=== PATIENT | male | born 2000 | race African-American/Black ===

== ENCOUNTER 2022-10-30 00:57 | Emergency (ER) | payer OTHER ==
--- NOTE | 2022-10-30 02:25 | ED Physician Documentation ---
PD HPI OVERDOSE - Stated complaint Stated Complaint: OD - Chief complaint Chief Complaint: MHE - History obtained from History obtained from: Patient - Additional information Additional information: HPI from patient; family is at bedside. Patient smoked fentanyl tonight, subsequently felt something dyspneic which he cannot describe beyond saying "something was wrong with my breathing", and this prompted him to ask family member to administer intransal narcan. Patient says this is his narcan and had been provided to him from a medical practitioner. He presents asymptomatic. Denies HI, SI. Review of Systems Psychiatric: denies: Suicidal, Homicidal, Anxiety PD PAST MEDICAL HISTORY - Past Medical History Past Medical History: No Cardiovascular: None Respiratory: None Neuro: None Endocrine/Autoimmune: None GI: None : None HEENT: None Psych: None Musculoskeletal: None Derm: None - Past Surgical History Past Surgical History: Yes - Present Medications Home Medications: Ambulatory Orders Medication Instructions Recorded Confirmed No Known Home Medications 10/30/22 10/30/22 - Allergies Allergies/Adverse Reactions: Allergies Allergy/AdvReac Type Severity Reaction Status Date / Time No Known Drug Allergies Allergy Verified 10/30/22 01:14 - Social History Does the pt smoke?: No Smoking Status: Never smoker Substance Use and Type: Other - Immunizations Immunizations are current?: Yes PD ED PE NORMAL - Vitals Vital signs reviewed: Yes - General General: Alert and oriented X 3, No acute distress, Well developed/nourished - Cardiac Cardiac: RRR, No murmur - Respiratory Respiratory: No respiratory distress, Clear bilaterally - Neuro Neuro: Alert and oriented X 3 Eye Opening: Spontaneous Motor: Obeys Commands Verbal: Oriented GCS Score: 15 - Psych Psych: Normal mood, Normal affect Results - Vitals Vitals: Oxygen O2 Source Room air PD Medical Decision Making - ED course Complexity details: considered differential, d/w patient ED course: asymptomatic on my H+P as well as reevaluation prior to d/c. He is observed for two hours in ED and is AAOx3. He declines inpatient treatment but is interested in information on [facility] which I provided within d/c instructions. He is given narcan kit prior to d/c Departure - Departure Disposition: 01 Home, Self Care Clinical Impression: Opiate abuse, continuous Condition: Good Instructions: ED Narcotic Abuse, ED Overdose Opiate Comments: If you are desiring inpatient treatment for addiction, one option would be [facility]. This is a stabilization and recovery program in [place]. The contact phone number is . They will answer the phone at anytime of the day or night, perform an [id number] interview to determine if you are appropriate for their facility, and, if so, they will then provide a time when you should arrive to the facility for the intake process. Discharge Date/Time: 10/30/22 03:03
[2022-10-30] MEDS ORDERED: NALOXONE HCL NASAL SPRAY KIT NAS STA (02:39)
[2022-10-30 03:01] VITALS: BP 143/71
== END 2022-10-30 03:03 | disposition home or self-care (01) ==
LOC: EDBD 00:57 → ED 00:57
DX: F11.10 Opioid abuse, uncomplicated (principal)
CPT/HCPCS: 99282; 99283; G2215

== ENCOUNTER 2022-11-02 18:04 | Emergency (ER) | payer OTHER ==
--- NOTE | 2022-11-02 18:13 | ED Physician Documentation ---
PD HPI CHEST PAIN - Stated complaint Stated Complaint: RAPID HR - History obtained from History obtained from: Patient - Additional information Additional information: 22-year-old gentleman is a habitual fentanyl smoker. Smoked fentanyl just about half an hour or an hour ago and after which he felt a rapid heart rate and wonders if he might be having a panic attack. There is no chest pain associated with it. PD PAST MEDICAL HISTORY - Past Medical History Cardiovascular: None Respiratory: None Neuro: None Endocrine/Autoimmune: None GI: None : None HEENT: None Psych: None Musculoskeletal: None Derm: None - Past Surgical History Past Surgical History: Yes - Present Medications Home Medications: Ambulatory Orders Medication Instructions Recorded Confirmed No Known Home Medications 10/30/22 11/02/22 - Allergies Allergies/Adverse Reactions: Allergies Allergy/AdvReac Type Severity Reaction Status Date / Time Penicillins Allergy Anaphylaxis Verified 11/02/22 18:22 Sulfa (Sulfonamide Allergy Anaphylaxis Verified 11/02/22 18:22 Antibiotics) - Social History Does the pt smoke?: No Smoking Status: Never smoker - Immunizations Immunizations are current?: Yes PD ED PE NORMAL - Vitals Vital signs reviewed: Yes - General General: Alert and oriented X 3, Other (Appears anxious) - HEENT HEENT: PERRL - Cardiac Cardiac: Other (Mild resting tachycardia without murmur, regular) - Respiratory Respiratory: No respiratory distress, Clear bilaterally - Abdomen Abdomen: Non tender - Neuro Neuro: Alert and oriented X 3 Results - Vitals Vitals: Vital Signs - 24 hr 11/02/22 11/02/22 18:14 18:34 Temperature 36.9 C Heart Rate 97 85 Respiratory 18 30 H Rate Blood Pressure 154/87 H 128/75 O2 Saturation 97 98 Oxygen O2 Source Room air - EKG (time done) 1808 EKG releavant findings:: EKG personally interpreted by author of this note. Relevant findings are: Rate: Rate (enter#) (91) Rhythm: NSR [place]: LAD Intervals: Normal [place] QRS: Normal Ischemia: Normal ST segments Computer interpretation: Disagree with computer - Labs Labs: Laboratory Tests 11/02/22 11/02/22 18:16 18:16 WBC 6.3 RBC 5.24 Hgb 14.4 Hct 43.8 MCV 83.6 MCH 27.5 MCHC 32.9 RDW 12.1 Plt Count 263 MPV 9.7 Neut # (Auto) 3.7 Lymph # (Auto) 1.9 [place] # (Auto) 0.6 Eos # (Auto) 0.1 Baso # (Auto) 0.0 Absolute Nucleated RBC 0.00 Nucleated RBC % 0.0 Sodium 137 Potassium 3.4 L Chloride 99 L Carbon Dioxide 28 Anion Gap 10.0 BUN 16 Creatinine 1.1 Estimated GFR (MDRD) 103 Glucose 138 H Calcium 9.5 Magnesium 1.9 PD Medical Decision Making - ED course ED course: Note that he already has Narcan dispensed at last visit which has not been used so not re-dispensed. 22-year-old gentleman presents with panicky feelings and rapid heart rate after using fentanyl. No worrisome diagnostic findings on CBC or CMP or EKG. He had just used fentanyl so when he arrived, he had driven himself here and basically parked in the middle of the parking lot without parking in a parking space obstr ucting traffic. He was told that no way shape or form could he drive home and I advised that he have a sober adult come pick him up. He declined anxiety medicine here. Departure - Departure Disposition: 01 Home, Self Care Clinical Impression: Fentanyl use disorder, severe, Anxiety Condition: Stable Record reviewed to determine appropriate education?: Yes Instructions: ED Drug Abuse General Comments: We think you would benefit from admission for detoxification and/or rehabilitation from alcohol and/or drugs. The closest facility that does this is in [place]. It is: [facility] [address] [place] [address] Call them at [phone] to arrange an intake appointment. Call your doctor to arrange a follow-up appointment, make the next available appointment. In the interim, return anytime if worse or if new symptoms develop.
[2022-11-02 18:28] LABS: BASOPHILS % (AUTO) 0.2 %; EOSINOPHILS # (AUTO) 0.1 10^3/uL (0.0-0.7); HCT - HEMATOCRIT 43.8 % (42.0-52.0); HGB - HEMOGLOBIN 14.4 g/dL (14.0-18.0); LYMPHOCYTES # (AUTO) 1.9 10^3/uL (1.5-3.5); LYMPHOCYTES % (AUTO) 29.7 %; MEAN CORPUSCULAR HEMOGLOBIN 27.5 pg (27.0-31.0); MEAN CORPUSCULAR HGB CONC 32.9 g/dL (32.0-36.0); MEAN CORPUSCULAR VOLUME 83.6 fL (80.0-94.0); MEAN PLATELET VOLUME 9.7 fL (7.4-11.4); MONOCYTES # (AUTO) 0.6 10^3/uL (0.0-1.0); MONOCYTES % (AUTO) 10.1 %; NEUTROPHILS # (AUTO) 3.7 10^3/uL (1.5-6.6); NEUTROPHILS % (AUTO) 58.8 %; PLT - PLATELET COUNT 263 10^3/uL (130-450); RED BLOOD COUNT 5.24 10^6/uL (4.70-6.10); RED CELL DISTRIBUTION WIDTH 12.1 % (12.0-15.0); WHITE BLOOD COUNT 6.3 x10^3/uL (4.8-10.8)
[2022-11-02 18:32] LABS: CALCIUM 9.5 mg/dL (8.5-10.3); CREATININE 1.1 mg/dL (0.6-1.2); MAGNESIUM 1.9 mg/dL (1.7-2.8); POTASSIUM 3.4 mmol/L (3.5-5.0)
[2022-11-02 19:35] VITALS: BP 124/69
== END 2022-11-02 20:06 | disposition home or self-care (01) ==
LOC: ED 18:04
DX: F11.988 Opioid use, unspecified with other opioid-induced disorder (principal)
CPT/HCPCS: 36415; 80048; 83735; 85025; 93005; 99284

== ENCOUNTER 2022-11-21 13:42 | Emergency (ER) | payer OTHER ==
[2022-11-21 14:28] VITALS: BP 113/71
--- NOTE | 2022-11-21 14:45 | XRAY Report ---
PROCEDURE: Chest 1 View X-Ray INDICATIONS: chest pain TECHNIQUE: One view of the chest was acquired. COMPARISON: None. FINDINGS: Surgical changes and devices: None. Lungs and pleura: No pleural effusions or pneumothorax. Lungs are clear. Mediastinum: Mediastinal contours appear normal. Heart size is normal. Bones and chest wall: No suspicious bony lesions. Overlying soft tissues appear unremarkable. IMPRESSION: No acute cardiopulmonary process. Reviewed by: Geovany Santiago MD on 11/21/2022 2:44 PM PDT Approved by: Geovany Santiago MD on 11/21/2022 2:44 PM PDT Station ID: [id number]
--- NOTE | 2022-11-21 15:47 | ED Physician Documentation ---
History of Present Illness - Stated complaint Stated Complaint: SOA,CHEST PX - Chief complaint Chief Complaint: General - History obtained from History obtained from: Patient - Additonal information Additional information: 22-year-old gentleman with history of anxiety and recently stopped using fentanyl now on Suboxone. He has been having panic attacks almost daily where he has a sense of impending doom and chest pressure. He had been on Zoloft in the past with good effect, and is trying to see a psychiatrist but needs something in the interim. He does have hydroxyzine at home as well. PD PAST MEDICAL HISTORY - Past Medical History Past Medical History: Yes Cardiovascular: None Respiratory: None Neuro: None Endocrine/Autoimmune: None GI: None : None HEENT: None Psych: Anxiety Musculoskeletal: None Derm: None - Past Surgical History Past Surgical History: Yes - Present Medications Home Medications: Ambulatory Orders Medication Instructions Recorded Confirmed Buprenorphine HCl/Naloxone HCl 2 mg PO BID 11/21/22 11/21/22 [Suboxone 2 mg-0.5 mg Sl Film] Sertraline HCl 100 mg PO DAILY #60 tablet 11/21/22 cloNIDine [Catapres] 0.1 mg PO BID 11/21/22 11/21/22 hydrOXYzine HCL [Hydroxyzine HCl] 25 mg PO BID 11/21/22 11/21/22 hydrOXYzine PAMOATE [Vistaril] 25 mg PO Q6H PRN #20 cap 11/21/22 - Allergies Allergies/Adverse Reactions: Allergies Allergy/AdvReac Type Severity Reaction Status Date / Time Penicillins Allergy Anaphylaxis Verified 11/02/22 18:22 cephalexin AdvReac Unknown Verified 11/21/22 14:15 - Social History Does the pt smoke?: No Smoking Status: Never smoker Does the pt drink ETOH?: No Does the pt have substance abuse?: Yes - Immunizations Immunizations are current?: Yes - POLST Patient has POLST: No PD ED PE NORMAL - Vitals Vital signs reviewed: Yes - General General: Alert and oriented X 3, No acute distress - Cardiac Cardiac: RRR, No murmur - Respiratory Respiratory: No respiratory distress, Clear bilaterally - Abdomen Abdomen: Non tender - Derm Derm: Normal color, Warm and dry - Extremities Extremities: No edema, No calf tenderness / cord - Neuro Neuro: Alert and oriented X 3, Normal speech Results - Vitals Vitals: Vital Signs - 24 hr 11/21/22 13:56 Temperature 36.8 C Heart Rate 69 Respiratory 19 Rate Blood Pressure 113/71 O2 Saturation 99 Oxygen O2 Source Room air - EKG (time done) 1359 EKG releavant findings:: EKG personally interpreted by author of this note. Relevant findings are: Rate: Rate (enter#) Rhythm: NSR (61) [place]: LAD Intervals: Normal [place] QRS: Normal Ischemia: ST elevation c/w repol. No: ST elevation c/w ischemia, ST depression Compare to prior EKG: Unchanged from prior EKG Computer interpretation: Agree with computer - Rads (name of study) 1 chest xr Relevant Findings:: Final report received, EMP independent interpretation of test PD Medical Decision Making - ED course ED course: 22-year-old gentleman with anxiety related chest pain with negative work-up. He would like to restart Zoloft. Departure - Departure Disposition: 01 Home, Self Care Clinical Impression: Anxiety Condition: Good Record reviewed to determine appropriate education?: Yes Instructions: ED Panic Attack Prescriptions: Sertraline HCl 100 mg PO DAILY #60 tablet hydrOXYzine PAMOATE [Vistaril] 25 mg PO Q6H PRN #20 cap PRN Reason: Anxiety Comments: When you have a panic attack you can certainly take the hydroxyzine you already have a prescription for as it will take a little bit of time for the Zoloft to become effective. Follow-up with a psychiatrist like you are planning. Return for new or worsening symptoms.
== END 2022-11-21 15:57 | disposition home or self-care (01) ==
LOC: ED 13:42
DX: F41.9 Anxiety disorder, unspecified (principal); Z79.899 Other long term (current) drug therapy
CPT/HCPCS: 93005; 99284

== ENCOUNTER 2022-12-25 15:30 | Outpatient (CLI) | payer OTHER ==
[2022-12-25 20:52] LABS: BASOPHILS % (AUTO) 0.3 %; EOSINOPHILS # (AUTO) 0.2 10^3/uL (0.0-0.7); EOSINOPHILS % (AUTO) 3.6 %; HCT - HEMATOCRIT 45.7 % (42.0-52.0); HGB - HEMOGLOBIN 14.8 g/dL (14.0-18.0); LYMPHOCYTES # (AUTO) 2.4 10^3/uL (1.5-3.5); LYMPHOCYTES % (AUTO) 40.9 %; MEAN CORPUSCULAR HEMOGLOBIN 27.8 pg (27.0-31.0); MEAN CORPUSCULAR HGB CONC 32.4 g/dL (32.0-36.0); MEAN CORPUSCULAR VOLUME 85.9 fL (80.0-94.0); MEAN PLATELET VOLUME 10.2 fL (7.4-11.4); MONOCYTES # (AUTO) 0.5 10^3/uL (0.0-1.0); MONOCYTES % (AUTO) 9.3 %; NEUTROPHILS # (AUTO) 2.7 10^3/uL (1.5-6.6); NEUTROPHILS % (AUTO) 45.7 %; PLT - PLATELET COUNT 246 10^3/uL (130-450); RED BLOOD COUNT 5.32 10^6/uL (4.70-6.10); RED CELL DISTRIBUTION WIDTH 12.9 % (12.0-15.0); WHITE BLOOD COUNT 5.8 x10^3/uL (4.8-10.8)
[2022-12-25 20:56] LABS: ALBUMIN 4.9 g/dL (3.2-5.5); ALBUMIN/GLOBULIN RATIO 1.6 (1.0-2.2); BILIRUBIN,TOTAL 0.7 mg/dL (0.2-1.0); CALCIUM 10.1 mg/dL (8.5-10.3); CREATININE 1.1 mg/dL (0.6-1.3); POTASSIUM 3.8 mmol/L (3.5-4.5); TOTAL PROTEIN 7.9 g/dL (6.4-8.9)
[2022-12-25 21:08] LABS: THYROID STIMULATING HORMONE 1.27 uIU/mL (0.34-5.60)
== END 2022-12-25 15:45 | disposition home or self-care (01) ==
LOC: LAB.N 15:30
PROVIDERS: ATTEND Family Medicine
DX: R07.89 Other chest pain (principal)
CPT/HCPCS: 36415; 80053; 84443; 84484; 85025; 85651

== ENCOUNTER 2023-01-10 14:38 | Emergency (ER) | payer OTHER ==
[2023-01-10 14:53] VITALS: BP 128/75
[2023-01-10] MEDS ORDERED: CHERRY SYRUP 10 ML UDC PO ONE (15:00)
[2023-01-10] MEDS ORDERED: DEXAMETHASONE 10 MG/ML VIAL PO STA (15:00)
--- NOTE | 2023-01-10 15:03 | ED Physician Documentation ---
History of Present Illness - Stated complaint Stated Complaint: DIZZINESS,STUNG BY BEE - Chief complaint Chief Complaint: Allergic Rx - Additonal information Additional information: 22-year-old male presents emergency department for evaluation of dizziness. Reports that he was stung in the buttock by a bee about 11 AM. He took 50 mg of Benadryl. States that he just feels dizzy and off. Denies chest pain or shortness of air. No urticaria. Patient states that several weeks ago he was stung multiple times by bees and had mouth swelling. And felt like his throat was closing up. He reports he toughed it out at home. He does have a history of anxiety. Was previously on fentanyl now on Suboxone. Has been seen recently in this emergency department for panic attacks. Review of Systems Constitutional: denies: Fever Eyes: reports: Reviewed and negative Ears: reports: Reviewed and negative Nose: reports: Reviewed and negative Throat: reports: Reviewed and negative Cardiac: reports: Reviewed and negative Respiratory: reports: Reviewed and negative GI: reports: Reviewed and negative PD PAST MEDICAL HISTORY - Past Medical History Cardiovascular: None Respiratory: None Neuro: None Endocrine/Autoimmune: None GI: None : None HEENT: None Psych: Anxiety Musculoskeletal: None Derm: None - Past Surgical History Past Surgical History: Yes - Present Medications Home Medications: Ambulatory Orders Medication Instructions Recorded Confirmed Buprenorphine HCl/Naloxone HCl 2 mg PO BID 11/21/22 01/10/23 [Suboxone 2 mg-0.5 mg Sl Film] Sertraline HCl 100 mg PO DAILY #60 tablet 11/21/22 01/10/23 hydrOXYzine HCL [Hydroxyzine HCl] 25 mg PO BID 11/21/22 01/10/23 - Allergies Allergies/Adverse Reactions: Allergies Allergy/AdvReac Type Severity Reaction Status Date / Time Penicillins Allergy Anaphylaxis Verified 11/02/22 18:22 cephalexin AdvReac Unknown Verified 11/21/22 14:15 - Social History Does the pt smoke?: No Smoking Status: Never smoker Does the pt drink ETOH?: No Does the pt have substance abuse?: Yes - Immunizations Immunizations are current?: Yes - POLST Patient has POLST: No PD ED PE NORMAL - General General: Alert and oriented X 3, Well developed/nourished. No: No acute distress (Anxious) - HEENT HEENT: Atraumatic, Moist mucous membranes, Pharynx benign, Other (No swelling of the posterior oropharynx tongue lips or neck. Normal phonation normal swallow.) - Neck Neck: Supple, no meningeal sign, No adenopathy - Cardiac Cardiac: RRR, No murmur - Respiratory Respiratory: No respiratory distress, Clear bilaterally - Derm Derm: Normal color, Warm and dry, No rash (No urticaria) - Extremities Extremities: No deformity - Neuro Neuro: Alert and oriented X 3, civil litigation attorney 2-12 intact, No motor deficit, No sensory deficit, Normal speech Eye Opening: Spontaneous Motor: Obeys Commands Verbal: Oriented GCS Score: 15 Results - Vitals Vitals: Vital Signs - 24 hr 01/10/23 14:46 Temperature 36.5 C Heart Rate 75 Respiratory 20 Rate Blood Pressure 128/75 O2 Saturation 100 Oxygen O2 Source Room air PD Medical Decision Making - ED course Complexity details: reviewed results, re-evaluated patient, d/w patient ED course: 22-year-old male presents emergency department with chief complaint of dizziness following a bee sting that occurred about 4 hours ago. Reportedly took 50 mg of Benadryl after the bee sting. Clinically he has no signs of systemic allergic reaction or anaphylaxis on exam. Patient does have a longstanding history of anxiety and panic attacks and I suspect some of that is driving his subjective statements of dizziness. Clinically he has a normal neurological and cerebellar exam. I did administer the patient 10 mg of Decadron to help with the localized inflammation of the bee sting. Pt was observed here in the emergency department for about one hour with no vital sign abnormalities observed. no ectopy on the personnel monitor. He is dc home in stable condition. Usual emergent return precautions discussee Departure - Departure Disposition: 01 Home, Self Care Clinical Impression: Accidental bee sting Condition: Stable Instructions: ED Allergic Reaction Local Other Comments: You were stung by a bee about 11 AM this morning. You do report some swelling around the bee sting site but you do not have any systemic signs of anaphylaxis or systemic side effect due to the bee sting. You did take Benadryl. I do suspect that some of your symptoms may be from the Benadryl. We did give you a single dose of Decadron today in the emergency department which will help with the inflammation around your bee sting. In general I would recommend that you take Benadryl once or twice daily or alternate with some Pepcid which can be helpful in bee stings. Reasons to return to the emergency department would be the development of hives, tongue, lip or face swelling, difficulty breathing or sudden severe chest pain. Forms: PCP List
--- OUTSIDE RECORDS SUMMARY | 2023-01-10 15:25 | EXTERNAL MEDICAL SUMMARY RPT | Continuity of Care Document ---
Author Name Unknown Address [address] [place] [address] Phone Organization [facility] Address [address] [place] [address] Phone Care Team Providers Care Farm Equipment Assembler Name Role Phone Unavailable Unavailable Unavailable Madelyn, Test Results Unavailable Unavailable Yelena Jordan, Stephen Unavailable Unavailable Conner Barahona, Sukh Unavailable Unavailgilbert Dominguez Rn, Vickie Unavailable Unavailable Allergies and Intolerances date description facility reaction severity (no date) PENICILLIN V POTASSIUM All (no reaction) (no severity) (no date) CEPHALEXIN All (no reaction) (no severit y) Medications date description facility 2022-12-25 00:00 buprenorphine-naloxone All 2022-12-26 00:00 buprenorphine-naloxone All 2022-12-26 00:00 buprenorphine-naloxone All 2022-12-26 00:00 buprenorphine-naloxone All 2022-12-25 00:00 hydroxyzine hcl All 2022-12-26 00:00 hydroxyzine hcl All 2022-12-26 00:00 hydroxyzine hcl All 2022-12-26 00:00 hydroxyzine hcl All 2022-12-25 00:00 hydroxyzine hcl All 2022-12-26 00:00 hydroxyzine hcl All 2022-12-26 00:00 hydroxyzine hcl All 2022-12-26 00:00 hydroxyzine hcl All 2022-12-25 00:00 buprenorphine-naloxone All 2022-12-26 00:00 buprenorphine-naloxone All 2022-12-26 00:00 buprenorphine-naloxone All 2022-12-26 00:00 buprenorphine-naloxone All 2022-12-25 00:00 sertraline All 2022-12-26 00:00 sertraline All 2022-12-26 00:00 sertraline All 2022-12-26 00:00 sertraline All 2022-12-25 00:00 sertraline All 2022-12-26 00:00 sertraline All 2022-12-26 00:00 sertraline All 2022-12-26 00:00 sertraline All 2022-12-25 00:00 buprenorphine-naloxone All 2022-12-26 00:00 buprenorphine-naloxone All 2022-12-26 00:00 buprenorphine-naloxone All 2022-12-26 00:00 buprenorphine-naloxone All 2022-12-25 00:00 hydroxyzine hcl All 2022-12-26 00:00 hydroxyzine hcl All 2022-12-26 00:00 hydroxyzine hcl All 2022-12-26 00:00 hydroxyzine hcl All 2022-12-25 00:00 sertraline All 2022-12-26 00:00 sertraline All 2022-12-26 00:00 sertraline All 2022-12-26 00:00 sertraline All 2022-12-25 00:00 sertraline All 2022-12-26 00:00 sertraline All 2022-12-26 00:00 sertraline All 2022-12-26 00:00 sertraline All 2022-12-25 00:00 buprenorphine-naloxone All 2022-12-26 00:00 buprenorphine-naloxone All 2022-12-26 00:00 buprenorphine-naloxone All 2022-12-26 00:00 buprenorphine-naloxone All 2022-12-25 00:00 KETOROLAC TROMETHAMINE All 2022-12-25 00:00 KETOROLAC TROMETHAMINE All 2022-12-25 00:00 KETOROLAC TROMETHAMINE All 2022-12-25 00:00 KETOROLAC TROMETHAMINE All 2022-12-25 00:00 hydroxyzine hcl All 2022-12-26 00:00 hydroxyzine hcl All 2022-12-26 00:00 hydroxyzine hcl All 2022-12-26 00:00 hydroxyzine hcl All Problems date description facility 2022-12-25 00:00 Atypical chest pain All 2022-12-25 00:00 Atypical chest pain All 2022-12-25 00:00 Atypical chest pain All 2022-12-25 00:00 Atypical chest pain All 2022-12-25 00:00 Other chest pain All 2022-12-25 00:00 Other chest pain All 2022-12-25 00:00 Other chest pain All 2022-12-25 00:00 Other chest pain All Procedures date description facility 2022-12-25 00:00 Visit Code Hold All 2022-12-25 00:00 Visit Code Hold All 2022-12-25 00:00 Visit Code Hold All 2022-12-25 00:00 Visit Code Hold All 2022-12-25 00:00 COMPREHENSIVE METABOLIC PANEL A 2022-12-25 00:00 COMPREHENSIVE METABOLIC PANEL A 2022-12-25 00:00 COMPREHENSIVE METABOLIC PANEL A 2022-12-25 00:00 COMPREHENSIVE METABOLIC PANEL A 2022-12-25 00:00 TROPONIN I HIGH SENSITIVITY All 2022-12-25 00:00 TROPONIN I HIGH SENSITIVITY All 2022-12-25 00:00 TROPONIN I HIGH SENSITIVITY All 2022-12-25 00:00 TROPONIN I HIGH SENSITIVITY All 2022-12-25 00:00 CBC W/Diff/Plt All 2022-12-25 00:00 CBC W/Diff/Plt All 2022-12-25 00:00 CBC W/Diff/Plt All 2022-12-25 00:00 CBC W/Diff/Plt All 2022-12-25 00:00 Sed Rate All 2022-12-25 00:00 Sed Rate All 2022-12-25 00:00 Sed Rate All 2022-12-25 00:00 Sed Rate All 2022-12-25 00:00 EKG Office Complete All 2022-12-25 00:00 EKG Office Complete All 2022-12-25 00:00 EKG Office Complete All 2022-12-25 00:00 EKG Office Complete All 2022-12-25 00:00 IM or SQ Injection All 2022-12-25 00:00 IM or SQ Injection All 2022-12-25 00:00 IM or SQ Injection All 2022-12-25 00:00 IM or SQ Injection All 2022-12-25 00:00 TSH WITH REFLEX TO FT4 All 2022-12-25 00:00 TSH WITH REFLEX TO FT4 All 2022-12-25 00:00 TSH WITH REFLEX TO FT4 All 2022-12-25 00:00 TSH WITH REFLEX TO FT4 All 2022-12-25 00:00 Ketorolac Tromethamine 30 mg/ml Soln All 2022-12-25 00:00 Ketorolac Tromethamine 30 mg/ml Soln All 2022-12-25 00:00 Ketorolac Tromethamine 30 mg/ml Soln All 2022-12-25 00:00 Ketorolac Tromethamine 30 mg/ml Soln All Results/Labs test date facility value unit notes Social History date description facility 2022-12-25 00:00 Unknown if ever smoked All 2022-12-26 00:00 Unknown if ever smoked All 2022-12-26 00:00 Unknown if ever smoked All 2022-12-26 00:00 Unknown if ever smoked All Vital Signs date measurement value units 2022-12-25 00:00 BMI 28.28 kg/m2 2022-12-25 00:00 BP_diastolic 84 mmHg 2022-12-25 00:00 BP_systolic 128 mmHg 2022-12-25 00:00 heart_rate 78 /min 2022-12-25 00:00 height_metric 182.88 cm 2022-12-25 00:00 height_standard 72 in 2022-12-25 00:00 respiration_rate 16 /min 2022-12-25 00:00 temperature_metric 36.67 C 2022-12-25 00:00 temperature_standard 98 F 2022-12-25 00:00 weight_metric 94.26 kg 2022-12-25 00:00 weight_standard 207.8 lb
[2023-01-10 15:58] VITALS: O2SAT 98
== END 2023-01-10 15:52 | disposition home or self-care (01) ==
LOC: ED 14:38
DX: T63.441A Toxic effect of venom of bees, accidental (unintentional), initial encounter (principal)
CPT/HCPCS: 99283; 99284; A9270